=== PATIENT | female | born 1955 | race African-American/Black ===

== ENCOUNTER 2016-11-07 20:52 | Emergency (ER) | payer OTHER ==
[~2016-11-07] VITALS: Ht 154.9 cm; Wt 63.6 kg
[2016-11-07] MEDS ORDERED: ALBUTEROL SULFATE 2.5 MG/0.5 ML NEB SOLUTION NEB ONE ×2 (21:00→22:45)
[2016-11-07] MEDS ORDERED: ALBUTEROL SULFATE 5 MG/ML 20 ML NEB SOLN [BULK] NEB ONE ×2 (21:00→22:45)
[2016-11-07] MEDS ORDERED: MethylPREDNISolone SOD SUCC 125 MG/2 ML VIAL IVP ONE (21:00)
[2016-11-07] MEDS ORDERED: IPRATROPIUM BROMIDE 0.5 MG/2.5 ML NEB SOLUTION NEB ONE ×2 (21:00→22:45)
[2016-11-07] MEDS ORDERED: BISO5TAB13 PO (21:06)
[2016-11-07] MEDS ORDERED: ALLO100T PO (21:06)
[2016-11-07] MEDS ORDERED: POTA10TA PO (21:06)
[2016-11-07] MEDS ORDERED: AMLO-511 PO (21:06)
[2016-11-07] MEDS ORDERED: LOVA20TA3 PO (21:06)
[2016-11-07] MEDS ORDERED: LEVO75 PO (21:06)
[2016-11-07] MEDS ORDERED: HYDR200T4 PO (21:06)
[2016-11-07 21:09] LABS: BASOPHILS % (AUTO) 0.2 % (0.0-2.0); EOSINOPHILS % (AUTO) 0.3 % (1.0-6.0); HEMATOCRIT 42.7 % (36-46); HEMOGLOBIN 14.6 g/dL (12.0-16.0); LYMPHOCYTES # (AUTO) 1.3 K/uL (1.0-4.8); LYMPHOCYTES % (AUTO) 7.2 % (22.0-44.0); MEAN CORPUSCULAR HGB CONC 34.1 G/dL (31.0-37.0); MEAN CORPUSCULAR VOLUME 97 fL (80-100); MONOCYTES # (AUTO) 1.1 K/uL (0.1-1.0); MONOCYTES % (AUTO) 5.8 % (2.0-9.0); NEUTROPHILS # (AUTO) 16.1 K/uL (1.8-7.7); PLATELET COUNT (AUTO) 266 K/uL (150-450); RED BLOOD CELL COUNT(AUTO) 4.42 MIL/uL (4.00-5.20); RED CELL DISTRIBUTION WIDTH 14.2 % (11.5-14.5); WHITE BLOOD COUNT (AUTO) 18.6 K/uL (4.5-11.0)
[2016-11-07 21:16] LABS: NEUTROPHILS % (AUTO) 86.5 % (40.0-70.0)
[2016-11-07 21:20] LABS: ANION GAP 9 mmol/L (8-16); CALCIUM, TOTAL 8.5 mg/dL (8.8-10.5); CARBON DIOXIDE 25 mmol/L (22-29); CHLORIDE 99 mmol/L (98-107); CREATININE 1.29 mg/dL (0.60-1.30); GLOMERULAR FILTR. RATE CALC 51 mL/min (>60); POTASSIUM 3.9 mmol/L (3.5-5.1); SODIUM SERUM 133 mmol/L (136-145); UREA NITROGEN, BLOOD 15 mg/dL (7-18)
[2016-11-07 21:22] LABS: PROTHROMBIN TIME 10.4 SEC (9.4-11.6)
[2016-11-07 21:27] LABS: RBC MORPHOLOGY COMMENT NORMAL RBC MORPH
[2016-11-07 21:45] LABS: ALANINE AMINOTRANSFERASE 37 U/L (12-78); ALBUMIN 3.3 g/dL (3.4-5.0); ASPARTATE AMINOTRANSFERASE 26 U/L (15-37); BILIRUBIN,TOTAL 0.5 mg/dL (0.1-1.0); CREATINE KINASE MB 2.4 ng/mL (0-5); CREATINE KINASE, TOTAL 137 U/L (26-192); TOTAL PROTEIN, SERUM 6.8 g/dL (6.4-8.2)
[2016-11-07 21:51] LABS: B-TYPE NATRIURETIC PEPTIDE 1540 pg/mL (0-100)
[2016-11-07] MEDS ORDERED: FUROSEMIDE 40 MG/4 ML VIAL IVP ONE (22:00)
[2016-11-07 22:05] LABS: ALLEN TEST, BLOOD GAS Positive; TEMPERATURE, FAHRENHEIT, BG 98.6 FAHREN (96.0-98.6)
[2016-11-07 22:06] LABS: ABG BASE EXCESS 4.2 mmol/L (-2.0-3.0); ABG PCO2 56 mmHg (35-45)
[2016-11-07 22:09] LABS: IPAP, BG 14 cm H2O
[2016-11-07 22:39] LABS: APPEARANCE,URINE CLEAR (CLEAR); GLUCOSE, URINE (UA) NEGATIVE (NEGATIVE); KETONES,URINE NEGATIVE (NEGATIVE); LEUKOCYTE ESTERASE ,URINE NEGATIVE (NEGATIVE); OCCULT BLOOD,URINE MODERATE (NEGATIVE); PROTEIN,URINE SEE CONFIRM (NEGATIVE)
[2016-11-07 22:41] LABS: ADD UA MICROSCOPIC YES
[2016-11-07 22:47] LABS: SULFOSALICYLIC ACID,URINE 3+ (Negative)
[2016-11-07 22:48] LABS: COARSE GRANULAR CASTS,URINE 0-2 /LPF (None Seen); SQUAMOUS EPITHELIAL CELL,UR Few /LPF (None Seen)
[2016-11-07 22:52] LABS: RENAL EPITHELIAL CELLS,URINE Few /LPF (None Seen)
[2016-11-07 22:55] LABS: THYROID STIMULATING HORMONE 5.98 uIU/mL (0.36-3.74)
[2016-11-07 23:53] LABS: ABG HCO3 27.5 mmol/L (22.0-26.0); ABG OXYHEMOGLOBIN 88.6 % (94.0-100.0); ABG PCO2 55 mmHg (35-45); ABG PH 7.358 (7.35-7.450); TEMPERATURE, FAHRENHEIT, BG 98.6 FAHREN (96.0-98.6)
[2016-11-07 23:54] LABS: ALLEN TEST, BLOOD GAS Positive
[2016-11-07 23:55] LABS: IPAP, BG 14 cm H2O
[2016-11-08 02:33] VITALS: BP 120/80
== END 2016-11-08 02:44 | disposition short-term general hospital (02) ==
LOC: EMS 20:52
DX: I11.0 Hypertensive heart disease with heart failure (principal); I50.9 Heart failure, unspecified; J44.9 Chronic obstructive pulmonary disease, unspecified; E03.9 Hypothyroidism, unspecified; F17.210 Nicotine dependence, cigarettes, uncomplicated; R06.89 Other abnormalities of breathing; Z88.0 Allergy status to penicillin
CPT/HCPCS: 36415; 71010; 80053; 81001; 82550; 82553; 82805; 83605; 83880; 84443; 84484; 85025; 85610; 85730; 87040; 87086; 93005; 94060; 94644; 94645; 94660; 96374; 96375; 99291; J1940; J2930; J7613; 99285

== ENCOUNTER 2019-06-05 02:11 | Emergency (ER) | payer OTHER ==
[~2019-06-05] VITALS: Ht 154.9 cm; Wt 64.1 kg
[~2019-06-05 02:11] MED LIST: ALLO100T PO; AMLO5TAB9 PO; BISO5TAB13 PO; HYDR200T4 PO; LEVO75 PO; LOVA20TA3 PO; POTA10TA PO
[2019-06-05] MEDS ORDERED: METO-558 PO (02:23)
[2019-06-05] MEDS ORDERED: HYDR-4421 PO (02:23)
[2019-06-05] MEDS ORDERED: TORS10TA18 PO (02:23)
[2019-06-05] MEDS ORDERED: PANT40TA25 PO (02:23)
[2019-06-05] MEDS ORDERED: ASPI-728 PO (02:23)
[2019-06-05] MEDS ORDERED: FAMOTIDINE 10 MG/ML 2 ML VIAL IVP ONE (02:30)
[2019-06-05] MEDS ORDERED: MAG HYDROX/AL HYDROX/SIMETH 30 ML SUSP UDCUP PO ONE (02:30)
[2019-06-05] MEDS ORDERED: ACETAMINOPHEN 500 MG TABLET PO ONE (02:30)
[2019-06-05] MEDS ORDERED: ONDANSETRON HCL 4 MG/2 ML VIAL IVP ONE (02:30)
[2019-06-05] MEDS ORDERED: SODIUM CHLORIDE 0.9% 0 ML ONE (02:49)
[2019-06-05] MEDS ORDERED: IOVERSOL 350 MG/ML 100 ML VIAL ONE (02:49)
[2019-06-05 03:20] LABS: HEMATOCRIT 34.2 % (36-46); HEMOGLOBIN 10.4 g/dL (12.0-16.0); MEAN CORPUSCULAR HEMOGLOBIN 23.3 pg (26.0-34.0); MEAN CORPUSCULAR HGB CONC 30.5 G/dL (31.0-37.0); MEAN CORPUSCULAR VOLUME 77 fL (80-100); PLATELET COUNT (AUTO) 324 K/uL (150-450); RED BLOOD CELL COUNT(AUTO) 4.47 MIL/uL (4.00-5.20); RED CELL DISTRIBUTION WIDTH 21.2 % (11.5-14.5)
[2019-06-05 03:29] LABS: CALCIUM, TOTAL 9.2 mg/dL (8.8-10.5); CREATININE 4.05 mg/dL (0.60-1.30); POTASSIUM 4.2 mmol/L (3.5-5.1)
[2019-06-05 03:31] LABS: INR 1.2 (0.9-1.1)
[2019-06-05 03:36] LABS: ALBUMIN 3.3 g/dL (3.4-5.0); BILIRUBIN,TOTAL 0.9 mg/dL (0.1-1.0); TOTAL PROTEIN, SERUM 6.2 g/dL (6.4-8.2)
[2019-06-05 03:39] LABS: BAND NEUTROPHILS % (MANUAL) 0 % (0-5)
[2019-06-05 03:45] LABS: APPEARANCE,URINE CLEAR (CLEAR); BILIRUBIN,URINE NEGATIVE (NEGATIVE); GLUCOSE, URINE (UA) NEGATIVE (NEGATIVE); KETONES,URINE NEGATIVE (NEGATIVE); LEUKOCYTE ESTERASE ,URINE NEGATIVE (NEGATIVE); NITRATE,URINE NEGATIVE (NEGATIVE); OCCULT BLOOD,URINE NEGATIVE (NEGATIVE); PH,URINE 5.5 (5.0-8.0); PROTEIN,URINE NEGATIVE (NEGATIVE); UROBILINOGEN,URINE 0.2 mg/dL (<=1.0)
[2019-06-05 03:46] LABS: BASOPHILS % (MANUAL) 2 % (0-2); LYMPHOCYTES % (MANUAL) 14 % (22-44); MONOCYTES % (MANUAL) 5 % (2-9); SEGMENTED NEUTROPHILS % 79 % (40-70)
[2019-06-05 03:47] LABS: CORRECTED WHITE BLOOD COUNT 9.3 K/uL (4.5-11.0)
[2019-06-05] MEDS ORDERED: FUROSEMIDE 40 MG/4 ML VIAL IVP ONE (04:00)
[2019-06-05 05:15] VITALS: BP 119/53
== END 2019-06-05 05:32 | disposition home or self-care (01) ==
LOC: EMS 02:12
DX: I11.0 Hypertensive heart disease with heart failure (principal); I50.9 Heart failure, unspecified; R60.0 Localized edema; R11.2 Nausea with vomiting, unspecified; J44.9 Chronic obstructive pulmonary disease, unspecified; E78.00 Pure hypercholesterolemia, unspecified; F17.210 Nicotine dependence, cigarettes, uncomplicated; Z88.0 Allergy status to penicillin
CPT/HCPCS: 36415; 71045; 74176; 80053; 81003; 82550; 83690; 83880; 84484; 85025; 85610; 85730; 93005; 96374; 96375; 99285; J1940; J2405; J3490; J7050